=== PATIENT | male | born 1960 | race Caucasian/White ===

== ENCOUNTER 2018-09-18 11:16 | Emergency (ER) | payer OTHER ==
[~2018-09-18] VITALS: Ht 185.4 cm; Wt 74.8 kg
[2018-09-18] MEDS ORDERED: Veetids 500500 MG PO (12:31)
== END 2018-09-18 12:34 | disposition home or self-care (01) ==
LOC: ER 11:16
DX: K04.7 Periapical abscess without sinus (principal); K02.9 Dental caries, unspecified; F17.200 Nicotine dependence, unspecified, uncomplicated
CPT/HCPCS: 99282

== ENCOUNTER → 2019-02-09 | Outpatient (CLI) | payer OTHER ==
[~2019-02-09] MED LIST: Veetids 500500 MG PO
== END | disposition home or self-care (01) ==
LOC: LAB SHORT 17:15 → LAB EV 17:15
DX: R35.0 Frequency of micturition (principal)
CPT/HCPCS: 87086

== ENCOUNTER 2023-07-29 08:28 | Emergency (ER) | payer OTHER ==
[~2023-07-29] VITALS: Ht 185.4 cm; Wt 78.5 kg
[2023-07-29] MEDS ORDERED: ASPIRIN REGIMEN81 MG PO (09:06)
[2023-07-29] MEDS ORDERED: NITROGLYCERIN0.4 M3 SL (09:06)
[2023-07-29] MEDS ORDERED: Bisoprolol Fumar5 MG PO (09:06)
[2023-07-29] MEDS ORDERED: Ketorolac Tromethamine 15mg Vial IV ONE (09:10)
[2023-07-29] MEDS ORDERED: OxyCODONE HCL 5 MG TAB PO ONE ×2 (09:15→10:55)
[2023-07-29 09:27] LABS: BASOPHILS ABSOLUTE AUTO 0.08 K/mm3 (0.00-0.23); BASOPHILS PERCENT AUTO 1 % (0-2); EOSINOPHILS ABSOLUTE AUTO 0.19 K/mm3 (0.00-0.68); EOSINOPHILS PERCENT AUTO 1 % (0-6); Hematocrit 49.4 % (37.0-53.0); Hemoglobin 16.8 g/dL (13.5-17.5); IMMATURE GRAN ABSOLUTE AUTO 0.04 K/mm3 (0.00-0.10); IMMATURE GRAN PERCENT AUTO 0 % (0-1); LYMPHOCYTES ABSOLUTE AUTO 2.33 K/mm3 (0.84-5.20); LYMPHOCYTES PERCENT AUTO 16 % (21-46); MONOCYTES ABSOLUTE AUTO 0.87 K/mm3 (0.16-1.47); MONOCYTES PERCENT AUTO 6 % (4-13); Mean Corpuscular HGB 32.4 pg (26.0-34.0); Mean Corpuscular Volume 95 fL (80-100); Mean Platelet Volume 9.2 fL (9.1-12.4); NEUTROPHILS ABSOLUTE AUTO 10.66 K/mm3 (1.96-9.15); NEUTROPHILS PERCENT AUTO 75 % (41-73); Platelet Count 258 K/mm3 (150-400); RDW Coefficient Variation 12.8 % (11.7-14.2); RDW Standard Deviation 45.6 fL (35.1-46.3); Red Blood Cell Count 5.18 M/mm3 (4.30-5.90); White Blood Cell Count 14.17 K/mm3 (4.00-11.30)
[2023-07-29 10:00] LABS: Alanine Aminotransfer (ALT/SGP 52 U/L (12-78); Albumin/Globulin Ratio 1.1 (0.8-1.8); Alk Phos 68 U/L (50-136); Anion Gap 6 mmol/L (3-11); Aspartate Aminotrans (AST/SGOT 37 U/L (12-37); Bilirubin, Total 0.6 mg/dL (0.1-1.0); Blood Urea Nitrogen 17 mg/dL (8-24); Bun/Creatinine Ratio 19.7 (12.0-20.0); C-REACTIVE PROTEIN, EXT RANGE <0.290 mg/dL (0.000-0.300); CO2, Blood 29 mmol/L (21-32); Calcium, Blood 9.1 mg/dL (8.5-10.1); Chloride, Blood 108 mmol/L (98-108); Creatinine, Blood 0.87 mg/dL (0.60-1.20); Globulin, Blood 3.8 g/dL (2.2-4.0); Glomerular Filtration Rate 98 (60-); Glucose, Blood 90 mg/dL (70-99); Potassium, Blood 4.8 mmol/L (3.5-5.5); Sodium, Blood 138 mmol/L (136-145); Total Protein, Blood 7.8 g/dL (6.4-8.2); Uric Acid, Blood 4.3 mg/dL (3.5-7.2)
[2023-07-29] MEDS ORDERED: Roxicodone5 MG PO (12:40)
[2023-07-29] MEDS ORDERED: NAPROXEN250 M1 PO (12:40)
[2023-07-29] MEDS ORDERED: CefTRIAXone Sodium 1,000 MG in NS 100 ML IV ONE (12:40)
[2023-07-29] MEDS ORDERED: AMOCLA875 PO (12:40)
[2023-07-29 13:31] VITALS: BP 118/68
== END 2023-07-29 13:33 | disposition home or self-care (01) ==
LOC: ER 08:28
PROVIDERS: Emergency Medicine
DX: M25.531 Pain in right wrist (principal); M10.9 Gout, unspecified; F17.210 Nicotine dependence, cigarettes, uncomplicated; Z79.82 Long term (current) use of aspirin; Z79.899 Other long term (current) drug therapy
CPT/HCPCS: 20605; 73110; 76882; 80053; 84550; 85025; 85651; 86140; 93971; 96365-59; 96375-59; 99284-25; A9270; J0696; J1885

== ENCOUNTER 2024-11-07 13:47 | Observation (INO) | payer OTHER ==
[~2024-11-07] VITALS: Ht 185.4 cm; Wt 78.9 kg
[~2024-11-07 13:47] MED LIST changes: +AMOCLA875 PO; +ASPIRIN REGIMEN81 MG PO; +Bisoprolol Fumar5 MG PO; +NAPROXEN250 M1 PO; +NITROGLYCERIN0.4 M3 SL; +Roxicodone5 MG PO
[2024-11-07 15:48] LABS: BASOPHILS ABSOLUTE AUTO 0.09 K/mm3 (0.00-0.23); BASOPHILS PERCENT AUTO 1 % (0-2); EOSINOPHILS ABSOLUTE AUTO 0.19 K/mm3 (0.00-0.68); EOSINOPHILS PERCENT AUTO 3 % (0-6); Hematocrit 46.4 % (37.0-53.0); Hemoglobin 15.8 g/dL (13.5-17.5); IMMATURE GRAN ABSOLUTE AUTO 0.02 K/mm3 (0.00-0.10); IMMATURE GRAN PERCENT AUTO 0 % (0-1); LYMPHOCYTES ABSOLUTE AUTO 2.34 K/mm3 (0.84-5.20); LYMPHOCYTES PERCENT AUTO 32 % (21-46); MONOCYTES ABSOLUTE AUTO 0.78 K/mm3 (0.16-1.47); MONOCYTES PERCENT AUTO 11 % (4-13); Mean Corpuscular HGB Conc 34.1 g/dL (31.5-36.5); Mean Corpuscular Volume 93 fL (80-100); NEUTROPHILS ABSOLUTE AUTO 3.95 K/mm3 (1.96-9.15); NEUTROPHILS PERCENT AUTO 54 % (41-73); NRBC ABSOLUTE 0.00 K/mm3 (0.00-0.02); NRBC Auto 0.0 /100 WBC (0.0-0.2); Platelet Count 228 K/mm3 (150-400); RDW Coefficient Variation 13.1 % (11.7-14.2); RDW Standard Deviation 44.7 fL (35.1-46.3)
[2024-11-07 16:03] LABS: Prothrombin Time Results 11.9 Sec (9.7-11.5)
[2024-11-07 16:12] LABS: Alanine Aminotransfer (ALT/SGP 53.0 U/L (12-78); Albumin, Blood 3.7 g/dL (3.4-5.0); Albumin/Globulin Ratio 1.1 (0.8-1.8); Anion Gap 7.0 mmol/L (3-11); Aspartate Aminotrans (AST/SGOT 44.0 U/L (12-37); Bilirubin, Total 0.7 mg/dL (0.1-1.0); Blood Urea Nitrogen 16.0 mg/dL (8-24); CO2, Blood 27.0 mmol/L (21-32); Calcium, Blood 9.0 mg/dL (8.5-10.1); Chloride, Blood 109.0 mmol/L (98-108); Creatinine, Blood 0.9 mg/dL (0.60-1.20); Globulin, Blood 3.4 g/dL (2.2-4.0); Glucose, Blood 69.0 mg/dL (70-99); Potassium, Blood 4.5 mmol/L (3.5-5.5); Sodium, Blood 138.0 mmol/L (136-145); Total Protein, Blood 7.1 g/dL (6.4-8.2)
[2024-11-07] MEDS ORDERED: Diltiazem HCl 5 MG / ML 5ML Vial IV ONE (18:15)
[2024-11-07] MEDS ORDERED: Metoprolol Tartrate 1 MG/ML 5 ML VIAL IV PRN (19:05)
[2024-11-07] MEDS ORDERED: FLU VACC TS2025-26(6MOS UP)/PF 45 MCG/0.5 ML SYRINGE IM ONE (19:05)
[2024-11-07 21:20] VITALS: BP 122/103
[2024-11-08 00:12] VITALS: BP 140/108
--- NOTE | 2024-11-08 02:33 | NUR ---
SHIFT SUMMARY: AOX4. INDEPENDENT IN ROOM. PT STATED THAT HE IS STILL HAVING NUMBNESS TO R INDEX FINGER. DENIES HEADAHCES, FACIAL NUMBNESS, R SIDED WEAKNESS, DIFFICULTY SPEECH, DIFFICULTY SWALLOWING. TELEMETRY MONITORING AFLUTTER 80s. CAROTID DUPLEX U/S DONE THIS SHIFT. PT STILL NEEDS MRI. CALL LIGHT IS WITHIN REACH. BED IS LOW AND LOCKED.
[2024-11-08 03:43] VITALS: BP 145/110
[2024-11-08 06:10] LABS: CHOL/HDL RATIO 2.4; Cholesterol 150 mg/dL (50-200); HDL Cholesterol 63 mg/dL (>39); LDL/HDL RATIO 1.1; Low Density Lipoprotein Chol 67 mg/dL (0-110); Triglycerides 99 mg/dL (30-160); Very Low Density Lipoprot Chol 19 mg/dL (6-32)
[2024-11-08 08:08] VITALS: BP 122/95
[2024-11-08 14:58] VITALS: BP 140/94
[2024-11-08] MEDS ORDERED: ATEN25 PO (18:43)
[2024-11-08] MEDS ORDERED: ELIQUIS5 M2 PO (18:43)
[2024-11-08] MEDS ORDERED: ATOR40TA PO (18:44)
[2024-11-08] MEDS ORDERED: IRBE150 PO (18:45)
[2024-11-08] MEDS ORDERED: NICO21TP TOP (18:45)
--- NOTE | 2024-11-08 19:28 | NUR ---
SHIFT SUMMARY AND DISCHARGE PATIENT ALERT AND INTERACTIVE. PATIENT SEEN BY DR AT END OF SHIFT AND DISCHARGE ORDERS WRITTEN. DISCHARGE INSTRUCTIONS REVIEWED WITH PATIENT. IV DC'D AND TELE REMOVED PRIOR TO DISCHARGE. PATIENT TAKEN DOWN VIA WHEELCHAIR
== END 2024-11-08 19:13 | disposition home or self-care (01) ==
LOC: ER 13:47 → ERHOLD 13:48 → MEDS 13:48
PROVIDERS: Nurse Practitioner Acute Care; Physician Assistant; ADMIT Internal Medicine
DX: I63.9 Cerebral infarction, unspecified (principal); R47.89 Other speech disturbances; R20.0 Anesthesia of skin; E78.5 Hyperlipidemia, unspecified; I10 Essential (primary) hypertension; F17.210 Nicotine dependence, cigarettes, uncomplicated; I48.91 Unspecified atrial fibrillation; Z79.82 Long term (current) use of aspirin; Z79.899 Other long term (current) drug therapy
CPT/HCPCS: 36415; 70450; 70551; 80053; 80061; 83036; 84443; 85025; 85610; 85730; 93005; 93010; 93306; 93880; 96374; 99285-25; A9270; G0378

== ENCOUNTER 2025-01-07 20:35 | Emergency (ER) | payer OTHER ==
[~2025-01-07] VITALS: Ht 185.4 cm; Wt 76.7 kg
[~2025-01-07 20:35] MED LIST changes: +ATEN25 PO; +ATOR40TA PO; +ELIQUIS5 M2 PO; +IRBE150 PO; +NICO21TP TOP
[2025-01-07 20:47] VITALS: BP 118/93
[2025-01-07 21:17] LABS: BASOPHILS ABSOLUTE AUTO 0.07 K/mm3 (0.00-0.23); BASOPHILS PERCENT AUTO 1 % (0-2); EOSINOPHILS ABSOLUTE AUTO 0.27 K/mm3 (0.00-0.68); EOSINOPHILS PERCENT AUTO 3 % (0-6); Hematocrit 44.3 % (37.0-53.0); Hemoglobin 14.8 g/dL (13.5-17.5); IMMATURE GRAN ABSOLUTE AUTO 0.02 K/mm3 (0.00-0.10); IMMATURE GRAN PERCENT AUTO 0 % (0-1); LYMPHOCYTES ABSOLUTE AUTO 2.06 K/mm3 (0.84-5.20); LYMPHOCYTES PERCENT AUTO 24 % (21-46); MONOCYTES ABSOLUTE AUTO 0.71 K/mm3 (0.16-1.47); MONOCYTES PERCENT AUTO 8 % (4-13); Mean Corpuscular HGB Conc 33.4 g/dL (31.5-36.5); Mean Corpuscular Volume 93 fL (80-100); NEUTROPHILS ABSOLUTE AUTO 5.46 K/mm3 (1.96-9.15); NEUTROPHILS PERCENT AUTO 64 % (41-73); NRBC ABSOLUTE 0.00 K/mm3 (0.00-0.02); NRBC Auto 0.0 /100 WBC (0.0-0.2); Platelet Count 225 K/mm3 (150-400); RDW Coefficient Variation 13.2 % (11.7-14.2); RDW Standard Deviation 45.1 fL (35.1-46.3)
[2025-01-07 21:34] LABS: Alanine Aminotransfer (ALT/SGP 53.0 U/L (12-78); Albumin, Blood 3.5 g/dL (3.4-5.0); Albumin/Globulin Ratio 1.1 (0.8-1.8); Anion Gap 9.0 mmol/L (3-11); Aspartate Aminotrans (AST/SGOT 50.0 U/L (12-37); Bilirubin, Total 0.6 mg/dL (0.1-1.0); Blood Urea Nitrogen 24.0 mg/dL (8-24); CO2, Blood 24.0 mmol/L (21-32); Calcium, Blood 8.7 mg/dL (8.5-10.1); Chloride, Blood 112.0 mmol/L (98-108); Creatinine, Blood 0.89 mg/dL (0.60-1.20); Globulin, Blood 3.3 g/dL (2.2-4.0); Glucose, Blood 139.0 mg/dL (70-99); Potassium, Blood 4.7 mmol/L (3.5-5.5); Sodium, Blood 140.0 mmol/L (136-145); Total Protein, Blood 6.8 g/dL (6.4-8.2)
[2025-01-07] MEDS ORDERED: NICO2 PO (23:41)
== END 2025-01-07 23:42 | disposition home or self-care (01) ==
LOC: ER 20:35
PROVIDERS: Student in an Organized Health Care Education/Training Program
DX: R04.2 Hemoptysis (principal); R74.01 Elevation of levels of liver transaminase levels; I48.91 Unspecified atrial fibrillation; F17.200 Nicotine dependence, unspecified, uncomplicated; Z86.73 Personal history of transient ischemic attack (TIA), and cerebral infarction without residual deficits; Z79.01 Long term (current) use of anticoagulants; Z79.899 Other long term (current) drug therapy
CPT/HCPCS: 71046; 80053; 85025; 93005; 93010; 99284-25